=== PATIENT | female | born 1930 | race Caucasian/White ===

== ENCOUNTER → 2017-05-13 | Outpatient (CLI) | payer MEDICARE, OTHER ==
[~2017-05-13] MED LIST: ALEN70 PO; AMLO10 PO; AMLO5; AMLODIPINE; ASCO500 PO; ASPI81CH PO; Acephen650 MG PR; BEANO; BISA5EC PO; CALC1.25T; CALCA500CH PO; CALCAVITD PO; CEFD300 PO; CELE200 PO; CEPH500 PO; CHOL10002 PO; CITA20 PO; CYAN100 PO; CYAN1000 PO; CYAN1000I IM; CYCL10 PO; Coral Calcium1 EAC3 PO; DESITIN DIAPER28 GM TOP; DOCU100; DOCU100 PO; DONE5 PO; ENAL20; ESOM20 PO; FISH1000 PO; FOLI1 PO; FOLI400 PO; FURO40 PO; Furosemide40 MG PO; GABA300 PO; GUAI600T33 PO; HALO.5 PO; HALOPERIDOL PO; HYDACE5; HYDACE5325; HYDACE5325 PO; HYDCHL25; HYDR1TAB94 PO; HYDROCODONE; HYDROCORTISONE; HYOS.125 SL; Ipratr-Albuterol3 ML INH; LEVFLO500 PO; LEVO750 PO; LEVOTHYROXINE; LEVSOD100 PO; LEVSOD125; LEVSOD125 PO; LIDOCAINE700 MG TP; LORA.5; LORA.5 PO; LORA10ER PO; METH5; METHADONE; MIRALAX17 GM PO; MORP20L PO; MULVITMIND; MULVITMIND PO; Milk Of Ma400 MG/5 M PO; NAPR500; NAPR500EC; NEXIUM; NYST100SU PO; NYST100TC TOP; NYSTRITC TOP; Norco 5-325 Ta1 EACH PO; OMEP20ER PO; OXYB5 PO; OXYGEN; PANT40; PRAM.5 PO; PRAMIPEXOLE DI0.5 MG PO; PROMETH-CODEIN 65 ML PO; PSYL5.85P PO; Prilosec Otc20 MG PO; QUET25 PO; RANI150 PO; REGULOID PO; SERT50; Senna8.6 MG PO; Synthroid100 MCG PO; THERAGRAN-M PR1 EACH PO; TRAZ100; VITAMIN B12-FO1 EACH PO; VITAMIN D35000 UNIT PO; VITAMIN D5000 UNIT PO; Voltaren100 GM; WARF5; WARF5 PO; ZINCODVICR TOP; Zithromax200 MG/5 M PO; [UNRECOGNIZED DRUG - OTHER] TOP; [UNRECOGNIZED DRUG - OTHER] TOP; cholecalciferol (vit PO
== END ==
LOC: LAB SHORT 13:50
DX: A04.71 Enterocolitis due to Clostridium difficile, recurrent (principal)
CPT/HCPCS: 87493

== ENCOUNTER 2017-06-12 15:29 | Emergency (ER) | payer MEDICARE, OTHER ==
[~2017-06-12] VITALS: Ht 160 cm; Wt 59.0 kg
[~2017-06-12 15:29] MED LIST changes: -CEFD300 PO; -CYAN1000I IM; -DESITIN DIAPER28 GM TOP; -GUAI600T33 PO; -HALO.5 PO; -HYOS.125 SL; -Ipratr-Albuterol3 ML INH; -LEVO750 PO; -LEVSOD100 PO; -LORA.5 PO; -MIRALAX17 GM PO; -MORP20L PO; -NYSTRITC TOP; -PROMETH-CODEIN 65 ML PO; -RANI150 PO; -REGULOID PO
[2017-06-12 16:03] LABS: BASOPHILS ABSOLUTE AUTO 0.07 K/mm3 (0.00-0.23); BASOPHILS PERCENT AUTO 0 % (0-2); EOSINOPHILS ABSOLUTE AUTO 0.04 K/mm3 (0.00-0.68); EOSINOPHILS PERCENT AUTO 0 % (0-6); Hematocrit 34.7 % (33.0-51.0); Hemoglobin 10.6 g/dL (11.5-16.0); IMMATURE GRAN ABSOLUTE AUTO 0.08 K/mm3 (0.00-0.10); IMMATURE GRAN PERCENT AUTO 0 % (0-1); LYMPHOCYTES ABSOLUTE AUTO 2.99 K/mm3 (0.84-5.20); LYMPHOCYTES PERCENT AUTO 16 % (21-46); MONOCYTES ABSOLUTE AUTO 1.05 K/mm3 (0.16-1.47); MONOCYTES PERCENT AUTO 6 % (4-13); Mean Corpuscular HGB 26.8 pg (26.0-34.0); Mean Corpuscular HGB Conc 30.5 g/dL (31.5-36.5); Mean Corpuscular Volume 88 fL (80-100); Mean Platelet Volume 8.4 fL (9.1-12.4); NEUTROPHILS ABSOLUTE AUTO 14.69 K/mm3 (1.96-9.15); NEUTROPHILS PERCENT AUTO 78 % (41-73); Platelet Count 345 K/mm3 (150-400); RDW Coefficient Variation 18.2 % (11.7-14.2); RDW Standard Deviation 58.5 fL (35.1-46.3); Red Blood Cell Count 3.96 M/mm3 (3.80-5.20); White Blood Cell Count 18.92 K/mm3 (4.00-11.30)
[2017-06-12 16:16] LABS: Alanine Aminotransfer (ALT/SGP 12 U/L (12-78); Albumin, Blood 2.5 g/dL (3.4-5.0); Albumin/Globulin Ratio 0.5 (0.8-1.8); Alk Phos 128 U/L (50-136); Anion Gap 5 mmol/L (6-16); Aspartate Aminotrans (AST/SGOT 16 U/L (12-37); Bilirubin, Total 0.3 mg/dL (0.1-1.0); Blood Urea Nitrogen 20 mg/dL (8-24); Bun/Creatinine Ratio 34.1 (12.0-20.0); CO2, Blood 34 mmol/L (21-32); Chloride, Blood 101 mmol/L (98-108); Creatinine, Blood 0.59 mg/dL (0.40-1.00); Globulin, Blood 5.1 g/dL (2.2-4.0); Glomerular Filtration Rate >60 (60-); Glucose, Blood 99 mg/dL (70-99); Potassium, Blood 4.3 mmol/L (3.5-5.5); Sodium, Blood 140 mmol/L (136-145); Total Protein, Blood 7.6 g/dL (6.4-8.2); Troponin I 0.021 ng/mL (0.000-0.040)
[2017-06-12] MEDS ORDERED: REGULOID PO (17:38)
[2017-06-12] MEDS ORDERED: DESITIN DIAPER28 GM TOP (17:39)
[2017-06-12] MEDS ORDERED: HALO.5 PO (17:39)
[2017-06-12] MEDS ORDERED: HYDR1TAB94 PO (17:40)
[2017-06-12] MEDS ORDERED: Ipratr-Albuterol3 ML INH (17:41)
[2017-06-12] MEDS ORDERED: NYSTRITC TOP (17:46)
[2017-06-12] MEDS ORDERED: PROMETH-CODEIN 65 ML PO (17:46)
[2017-06-12] MEDS ORDERED: LEVO750 PO (17:56)
[2018-02-13] MEDS ORDERED: CELE200 PO (19:22)
[2018-02-13] MEDS ORDERED: HYDR1TAB94 PO (19:25)
[2018-02-13] MEDS ORDERED: HALO.5 PO (19:25)
[2018-02-13] MEDS ORDERED: QUET25 PO (19:26)
[2018-02-14] MEDS ORDERED: CEFD300 PO (13:59)
[2018-02-14] MEDS ORDERED: HYOS.125 SL (14:00)
[2018-02-14] MEDS ORDERED: LORA.5 PO (14:00)
[2018-02-14] MEDS ORDERED: MORP20L PO (14:01)
== END 2017-06-12 19:02 | disposition home or self-care (01) ==
LOC: ER 15:29
PROVIDERS: Physician Assistant
DX: J18.9 Pneumonia, unspecified organism (principal); Z88.0 Allergy status to penicillin; Z79.899 Other long term (current) drug therapy; Z79.82 Long term (current) use of aspirin; Z79.2 Long term (current) use of antibiotics; F03.90 Unspecified dementia, unspecified severity, without behavioral disturbance, psychotic disturbance, mood disturbance, and anxiety; I10 Essential (primary) hypertension; I25.10 Atherosclerotic heart disease of native coronary artery without angina pectoris
CPT/HCPCS: 36415; 71046; 80053; 83605; 83880; 84484; 85025; 87040; 93005; 93010; 99284

== ENCOUNTER 2017-07-14 08:35 | Emergency (ER) | payer MEDICARE, OTHER ==
[~2017-07-14] VITALS: Ht 160 cm; Wt 54.4 kg
[~2017-07-14 08:35] MED LIST changes: +DESITIN DIAPER28 GM TOP; +HALO.5 PO; +Ipratr-Albuterol3 ML INH; +LEVO750 PO; +NYSTRITC TOP; +PROMETH-CODEIN 65 ML PO; +REGULOID PO
[2017-07-14] MEDS ORDERED: ALEN70 PO (08:48)
[2017-07-14] MEDS ORDERED: LEVSOD100 PO (08:48)
[2017-07-14] MEDS ORDERED: AMLO10 PO (08:49)
[2017-07-14] MEDS ORDERED: ASPI81CH PO (08:49)
[2017-07-14] MEDS ORDERED: DOCU100 PO (08:51)
[2017-07-14] MEDS ORDERED: FOLI400 PO (08:53)
[2017-07-14] MEDS ORDERED: FURO40 PO (08:54)
[2017-07-14] MEDS ORDERED: GUAI600T33 PO (08:54)
[2017-07-14] MEDS ORDERED: RANI150 PO (08:56)
[2017-07-14] MEDS ORDERED: CYAN1000I IM (08:57)
[2017-07-14] MEDS ORDERED: CHOL10002 PO (08:57)
[2017-07-14] MEDS ORDERED: PRAM.5 PO (08:58)
[2017-07-14] MEDS ORDERED: GABA300 PO (08:58)
[2017-07-14 09:30] LABS: BASOPHILS PERCENT AUTO 1 % (0-2); EOSINOPHILS ABSOLUTE AUTO 0.34 K/mm3 (0.00-0.68); EOSINOPHILS PERCENT AUTO 3 % (0-6); Hematocrit 39.6 % (33.0-51.0); Hemoglobin 11.9 g/dL (11.5-16.0); IMMATURE GRAN ABSOLUTE AUTO 0.03 K/mm3 (0.00-0.10); IMMATURE GRAN PERCENT AUTO 0 % (0-1); LYMPHOCYTES ABSOLUTE AUTO 1.45 K/mm3 (0.84-5.20); LYMPHOCYTES PERCENT AUTO 13 % (21-46); MONOCYTES ABSOLUTE AUTO 0.54 K/mm3 (0.16-1.47); MONOCYTES PERCENT AUTO 5 % (4-13); Mean Corpuscular HGB 26.4 pg (26.0-34.0); Mean Corpuscular HGB Conc 30.1 g/dL (31.5-36.5); Mean Corpuscular Volume 88 fL (80-100); NEUTROPHILS ABSOLUTE AUTO 8.89 K/mm3 (1.96-9.15); NEUTROPHILS PERCENT AUTO 78 % (41-73); Platelet Count 315 K/mm3 (150-400); RDW Standard Deviation 61.9 fL (35.1-46.3); Red Blood Cell Count 4.51 M/mm3 (3.80-5.20); White Blood Cell Count 11.35 K/mm3 (4.00-11.30)
[2017-07-14] MEDS ORDERED: MIRALAX17 GM PO (10:30)
[2018-02-13] MEDS ORDERED: CELE200 PO (19:22)
[2018-02-13] MEDS ORDERED: HALO.5 PO (19:25)
[2018-02-13] MEDS ORDERED: HYDR1TAB94 PO (19:25)
[2018-02-13] MEDS ORDERED: QUET25 PO (19:26)
[2018-02-14] MEDS ORDERED: CEFD300 PO (13:59)
[2018-02-14] MEDS ORDERED: HYOS.125 SL (14:00)
[2018-02-14] MEDS ORDERED: LORA.5 PO (14:00)
[2018-02-14] MEDS ORDERED: MORP20L PO (14:01)
== END 2017-07-14 11:02 | disposition home or self-care (01) ==
LOC: ER 08:35
PROVIDERS: Emergency Medicine
DX: K59.00 Constipation, unspecified (principal); F03.90 Unspecified dementia, unspecified severity, without behavioral disturbance, psychotic disturbance, mood disturbance, and anxiety; I10 Essential (primary) hypertension; I25.10 Atherosclerotic heart disease of native coronary artery without angina pectoris; E03.9 Hypothyroidism, unspecified; Z88.0 Allergy status to penicillin; Z79.899 Other long term (current) drug therapy; Z79.82 Long term (current) use of aspirin
CPT/HCPCS: 36415; 74018; 83690; 85025; 99283

== ENCOUNTER → 2017-08-23 | Outpatient (CLI) | payer MEDICARE, OTHER ==
[~2017-08-23] MED LIST changes: +CYAN1000I IM; +GUAI600T33 PO; +LEVSOD100 PO; +MIRALAX17 GM PO; +RANI150 PO
== END ==
LOC: LAB SHORT 15:48 → LAB EV 15:48
DX: L02.416 Cutaneous abscess of left lower limb (principal)
CPT/HCPCS: 87070; 87205

== ENCOUNTER 2017-09-02 09:15 | Day surgery (SDC) | payer MEDICARE, OTHER | END 2017-09-02 22:45 | disposition home or self-care (01) | LOC: WOUND 09:15 | DX: Z48.00 Encounter for change or removal of nonsurgical wound dressing (principal); S72.92XD Unspecified fracture of left femur, subsequent encounter for closed fracture with routine healing; L02.91 Cutaneous abscess, unspecified; I10 Essential (primary) hypertension; J44.9 Chronic obstructive pulmonary disease, unspecified; G47.30 Sleep apnea, unspecified; R60.9 Edema, unspecified; F02.81 Dementia in other diseases classified elsewhere, unspecified severity, with behavioral disturbance; E03.9 Hypothyroidism, unspecified | CPT/HCPCS: G0463 ==

== ENCOUNTER 2017-09-10 11:16 | Day surgery (SDC) | payer MEDICARE, OTHER | END 2017-09-10 13:43 | disposition home or self-care (01) | LOC: WOUND 11:16 | DX: Z48.00 Encounter for change or removal of nonsurgical wound dressing (principal); L02.416 Cutaneous abscess of left lower limb; S72.92XA Unspecified fracture of left femur, initial encounter for closed fracture; I10 Essential (primary) hypertension; J44.9 Chronic obstructive pulmonary disease, unspecified; G47.30 Sleep apnea, unspecified; R60.9 Edema, unspecified; F02.81 Dementia in other diseases classified elsewhere, unspecified severity, with behavioral disturbance | CPT/HCPCS: 73562-LT; G0463 ==

== ENCOUNTER 2017-09-17 | Day surgery (SDC) | END 2017-09-17 10:07 | disposition home or self-care (01) ==

== ENCOUNTER 2017-09-24 11:26 | Day surgery (SDC) | payer MEDICARE, OTHER | END 2017-09-24 23:04 | disposition home or self-care (01) | LOC: WOUND 11:26 | PROC: 0HBLXZZ Excision of Left Lower Leg Skin, External Approach (ICD-10-PCS; principal; 2017-09-24) | DX: L02.416 Cutaneous abscess of left lower limb (principal); S72.92XA Unspecified fracture of left femur, initial encounter for closed fracture; I10 Essential (primary) hypertension; J44.9 Chronic obstructive pulmonary disease, unspecified; G47.30 Sleep apnea, unspecified; R60.9 Edema, unspecified; F02.81 Dementia in other diseases classified elsewhere, unspecified severity, with behavioral disturbance; Z16.12 Extended spectrum beta lactamase (ESBL) resistance | CPT/HCPCS: 87070; 87075; 87205; G0463 ==

== ENCOUNTER 2017-10-01 11:26 | Day surgery (SDC) | payer MEDICARE, OTHER | END 2017-10-01 12:27 | disposition home or self-care (01) | LOC: WOUND 11:26 | DX: Z48.00 Encounter for change or removal of nonsurgical wound dressing (principal); L02.416 Cutaneous abscess of left lower limb; S72.92XA Unspecified fracture of left femur, initial encounter for closed fracture; I10 Essential (primary) hypertension; J44.9 Chronic obstructive pulmonary disease, unspecified; G47.30 Sleep apnea, unspecified; R60.9 Edema, unspecified; F02.81 Dementia in other diseases classified elsewhere, unspecified severity, with behavioral disturbance; Z16.12 Extended spectrum beta lactamase (ESBL) resistance | CPT/HCPCS: G0463 ==

== ENCOUNTER 2017-10-09 00:15 | Day surgery (SDC) | payer MEDICARE, OTHER | END 2017-10-09 23:32 | disposition home or self-care (01) | LOC: WOUND 00:15 | DX: Z48.00 Encounter for change or removal of nonsurgical wound dressing (principal); L02.416 Cutaneous abscess of left lower limb; S72.92XA Unspecified fracture of left femur, initial encounter for closed fracture; I10 Essential (primary) hypertension; G47.30 Sleep apnea, unspecified; R60.9 Edema, unspecified; F02.81 Dementia in other diseases classified elsewhere, unspecified severity, with behavioral disturbance; Z16.12 Extended spectrum beta lactamase (ESBL) resistance | CPT/HCPCS: G0463 ==

== ENCOUNTER 2017-10-16 13:30 | Day surgery (SDC) | payer MEDICARE, OTHER | END 2017-10-16 14:43 | disposition home or self-care (01) | LOC: WOUND 13:30 | DX: Z48.00 Encounter for change or removal of nonsurgical wound dressing (principal); L02.416 Cutaneous abscess of left lower limb; S72.92XD Unspecified fracture of left femur, subsequent encounter for closed fracture with routine healing; I10 Essential (primary) hypertension; J44.9 Chronic obstructive pulmonary disease, unspecified; G47.30 Sleep apnea, unspecified; R60.9 Edema, unspecified; Z16.12 Extended spectrum beta lactamase (ESBL) resistance | CPT/HCPCS: G0463 ==

== ENCOUNTER 2017-11-01 11:15 | Day surgery (SDC) | payer MEDICARE, OTHER | END 2017-11-01 12:50 | disposition home or self-care (01) | LOC: WOUND 11:15 | DX: L02.91 Cutaneous abscess, unspecified (principal); S72.92XD Unspecified fracture of left femur, subsequent encounter for closed fracture with routine healing; R60.9 Edema, unspecified; Z16.12 Extended spectrum beta lactamase (ESBL) resistance; I10 Essential (primary) hypertension; J44.9 Chronic obstructive pulmonary disease, unspecified; G47.30 Sleep apnea, unspecified; F02.81 Dementia in other diseases classified elsewhere, unspecified severity, with behavioral disturbance; I25.10 Atherosclerotic heart disease of native coronary artery without angina pectoris; E03.9 Hypothyroidism, unspecified | CPT/HCPCS: G0463 ==

== ENCOUNTER 2017-11-06 10:00 | Day surgery (SDC) | payer MEDICARE, OTHER | END 2017-11-06 10:22 | disposition home or self-care (01) | LOC: WOUND 10:00 | DX: Z48.00 Encounter for change or removal of nonsurgical wound dressing (principal); S81.802A Unspecified open wound, left lower leg, initial encounter; L02.91 Cutaneous abscess, unspecified; S72.92XD Unspecified fracture of left femur, subsequent encounter for closed fracture with routine healing; I10 Essential (primary) hypertension; J44.9 Chronic obstructive pulmonary disease, unspecified; G47.30 Sleep apnea, unspecified; R60.9 Edema, unspecified; F02.81 Dementia in other diseases classified elsewhere, unspecified severity, with behavioral disturbance; Z16.12 Extended spectrum beta lactamase (ESBL) resistance; I25.10 Atherosclerotic heart disease of native coronary artery without angina pectoris; E03.9 Hypothyroidism, unspecified | CPT/HCPCS: G0463 ==

== ENCOUNTER 2017-11-25 00:34 | Day surgery (SDC) | payer MEDICARE, OTHER | END 2017-11-25 22:59 | disposition home or self-care (01) | LOC: ATC 00:34 → WOUND 10:04 → ATC 10:38 | DX: S81.802A Unspecified open wound, left lower leg, initial encounter (principal); I10 Essential (primary) hypertension; G47.30 Sleep apnea, unspecified; E03.9 Hypothyroidism, unspecified; J44.9 Chronic obstructive pulmonary disease, unspecified | CPT/HCPCS: 99212 ==